=== PATIENT | female | born 1980 | race Hispanic/Latino ===

== ENCOUNTER → 2023-07-31 | Outpatient (CLI) | payer BC, OTHER | END | disposition home or self-care (01) | LOC: RAH 14:33 | PROVIDERS: ATTEND Obstetrics & Gynecology | DX: N60.02 Solitary cyst of left breast (principal); N63.21 Unspecified lump in the left breast, upper outer quadrant; Z98.82 Breast implant status; R92.2 Inconclusive mammogram | CPT/HCPCS: 76641; 77062; 77066 ==

== ENCOUNTER → 2025-03-13 | Outpatient (CLI) | payer BC | END | disposition home or self-care (01) | LOC: RAH 09:58 | PROVIDERS: ATTEND Registered Nurse Women's Health Care, Ambulatory | DX: Z12.31 Encounter for screening mammogram for malignant neoplasm of breast (principal) | CPT/HCPCS: 77067 ==